=== PATIENT | female | born 1955 | race Caucasian/White ===

== ENCOUNTER 2024-11-08 10:10 | Outpatient (CLI) | payer MEDICARE, SELFPAY ==
--- NOTE | ~2024-11-08 | XR_ITS ---
XR chest 2V 11/08/2024 10:35 Indication: Cough Procedure: 2 view chest Comparison: 04/17/2009 Findings: There is left lower lobe airspace disease, compatible with pneumonia. Heart size normal. No edema, significant effusion or pneumothorax. No acute osseous abnormality. Impression: 1: Left lower lobe pneumonia. Reviewed, dictated and finalized at location B. INUM SMITH Impression: 1: Left lower lobe pneumonia.
--- OUTSIDE RECORDS SUMMARY | 2024-11-08 10:33 | XMS_ITS ---
Author Organization [facility] Address [address] [place] [address] Phone Care Team Providers Care Laborer Road Name Role Phone Alex Trujillo MD Primary Care Provider + [phone] Catrachito Dwyer MD Unavailable [phone] Active Problems Problem Noted Date Diagnosed Date Abnormal finding on mammography 09/20/2023 Anemia 09/20/2023 Blood in urine 09/20/2023 Constipation 09/20/2023 Disorder of sacrum 09/20/2023 Enthesopathy of hip region 09/20/2023 Lower abdominal pain 09/20/2023 Malaise and fatigue 09/20/2023 Osteoarthritis of knee 09/20/2023 Pain in limb 09/20/2023 Sinusitis 09/20/2023 Type 2 diabetes mellitus without complication (C MS/HCC) 09/20/2023 Post-operative pain 05/31/2023 Closed fracture of sacrum, u nspecified portion of sacrum, initial encounter 03/15/2023 Surgery, elective 03/15/2023 Central cord syndrome at C5 level of cervical sp inal cord 03/14/2023 Nausea 02/11/2023 Acute upper respiratory infection 08/09/2022 COVID-19 07/28/2022 Fatigue 07/16/2022 Dyspnea 05/25/2022 Hyponatremia 04/29/2022 Muscle weakness 04/29/2022 Acute urinary tract infection 04/21/2022 Dizziness 04/20/2022 Headache 04/20/2022 Pain of right hip joint 03/15/2022 Gastroesophageal reflux disease without esophagi tis 08/13/2021 Hyperlipidemia 03/06/2019 Essential hypertension 03/06/2019 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 Past Treatment and Therapy Plans No past plan information found. Lifetime Dose Tracking * Chemical Lifetime Dose Automatic Entry Manual Entr y Fluoro Time 0.452 minutes 0.452 minutes 0 minutes Air kerma at the reference point (Ka,r) 3.9 mGy 3 .9 mGy 0 mGy DLP 4,170.1 mGycm 4,170.1 mGycm 0 mGycm
--- OUTSIDE RECORDS SUMMARY | 2024-11-08 10:33 | XMS_ITS | Referral Summary ---
Author Organization [facility] Address [address] [place] [address] Phone Care Team Providers Care Cissp Name Role Phone Alex Trujillo MD Primary Care Provider + [phone] Catrachito Dwyer MD Unavailable Encounters Date Type Department Care Team Description 10/11/2024 Telephone [facility] Orth[facility] Medicine [address] [place] [address] [place] [phone] Dru Mcneal MD Appointment 08/24/2024 Telephone [facility] Orthopaedic Surgery [address] [facility] Advanced [facility] [address] [place] [address] [place] [address] Dru Mcneal MD from Last 3 Months Allergies Active Allergy Reactions Criticality Noted Date Comments Adhesive Tape-Silicones Codeine Nausea only Low Morphine Nausea only Low 09/20/2023 Opioids - Morphine Analogues Nausea only Low 2014 Medications carvedilol (COREG) 3.125 mg tablet 06/06/2017Coreg, po solid 6.25 mg TabletPOBIDCurrent Medication 017 Active hydroCHLOROthi azide (HYDRODIURIL) 25 mg tablet 06/06/2017Hydrochloroth iazide, po solid 25 mg TabletPOas directedCurrent Medication 017 Active lisinopril (PRINIVIL,ZEST RIL) 40 mg tablet 06/06/2017Lisinopril, po solid 40 mg TabletPOBIDCurrent Medication 017 Active metFORMIN (GLUCOPHAGE) 1,000 mg tablet 06/06/2017Metformin hcl, po solid 1000 mg TabletPOBIDCurrent Medication Active montelukast (SINGULAIR) 10 mg tablet 06/06/2017Montelukast sodium, po solid 10 mg TabletPOdailyCurrent Medication Active multivitamin capsule 06/06/2017One daily multivitamin, po solid TabletPOdailyCurrent Medication Active pravastatin (PRAVACHOL) 40 mg tablet 06/06/2017Pravastatin sodium, po solid 10 mg TabletPOQHSCurrent Medication Active ascorbic acid (ascorbic acid) 500 mg tablet,chewabl e daily. Active potassium 99 mg tablet Take by mouth. Activ e amLODIPine (NORVASC) 10 mg tablet Take 1 tablet (10 mg total) by mouth daily 023 Active acetaminophen 500 mg capsule Take 2 capsules (1,000 mg total) by mouth every 6 (six) hours 30 tablet [address] (PROTONIX) 40 mg EC tabletIndicati ons:Stress Ulcer Prophylaxis Take 1 tablet (40 mg total) by mouth daily 30 tablet 023 Active aspirin 325 mg tablet Take 1 tablet (325 mg total) by mouth daily May restart 325mg ASA when Lovenox is discontinued (04/24/23). 023 Active cefdinir (OMNICEF) 300 mg capsule Active magnesium oxide (MAG-OX) 400 mg (241.3 mg elemental magnesium) tablet Take 1 tablet (400 mg total) by mouth 2 (two) times a day 023 Active baclofen (LIORESAL) 10 mg tabletIndicati ons:Post-opera tive pain Take 1 tablet (10 mg total) by mouth 2 (two) times a day 60 tablet 025 Active baclofen (LIORESAL) 10 mg tabletIndicati ons:Post-opera tive pain Take 1 tablet (10 mg total) by mouth 3 (three) times a day as needed for muscle spasms 90 tablet 1 023 2024 Disconti nued(Reo rder) Active Problems Problem Noted Date Diagnosed Date [...] 02/24/2015:Stage IA(cT1a, cN0, cM0, G2, ER: Positive, MD: Positive, HER2: Negative) - Signed by Catrachito Dwyer MD on 03/06/2018 Calculus of kidney 01/12/2016 Angina pectoris 08/22/2013 Former smoker 01/05/2012 Sleep apnea syndrome 02/01/2011 Overview (12/30/2017): Description: Sleep Apnea Atrial fibrillation (CMS/HCC) 02/01/2011 Overview (12/30/2017): Description: Atrial Fibrillation Immunizations Immunization Administration Dates Next Due Flucelvax Influenza Quad 09/07/2018 Influenza, Unspecified 07/06/2017,07/06/2016, Pneumococcal Conjugate, Unspecified 07/06/2015 Social History Tobacco Use Types Packs/Day Years Used Date Smoking Tobacco: Former Cigarettes 3 8 1 969 - 1976 Smokeless Tobacco: Never Tobacco Cessation:Counseling Given: Not Answered Alcohol Use Standard Drinks/Week Comments Not Currently 0 (1 standard drink = 0.6 oz pur e alcohol) AUDIT-C Answer Date Recorded Frequency of Alcohol Consumption Not on file 09/20/2023 Q2: How many drinks containi ng alcohol do you have on a typical day when you are drinking? Patient does not drink Frequency of Binge Drinking Not on file 10/2023 Personal Safety Answer Date Recorded Have you ever been in or are you currently in a harmful physical or emotional relationship or is someone making you feel afraid or unsafe? 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 Gender Identity Not on file Sexual Orientation Not on file Last Filed Vital Signs Vital Sign Reading Time Taken Comments Blood Pressure 130/59 03/23/2023 1:40 PM CDT Pulse 71 03/23/2023 1:40 PM CDT Temperature 36.7 C (98.1 F) 03/23/2023 12:10 PM CDT Respiratory Rate 16 03/23/2023 12:10 PM CDT Oxygen Saturation 98% 03/23/2023 1:40 PM CDT Inhaled Oxygen Concentration - - Weight 104.8 kg (231 lb) 04/24/2024 4:17 PM CDT Height 168.9 cm (5' 6.5 ) 04/24/2024 4:17 PM CDT Body Mass Index 36.73 04/24/2024 4:17 PM CDT Plan of Treatment Not on file Medical Devices Implanted Type Area Boiler Operators Supervisor Device Identifier Shelf Expiration Date Model / Serial / Lot Medtronic Inc Infuse 20ga 2x1in Vial Absorbable Syringe Needle Medium Graft 5.6 [id number] - [id number] Implanted:Qty: 1 on 03/15/2023 by Dru Mcneal MD at [facility] N/A: Spine Cervical Medtronic Inc 05/20/2023 [id number] / / Allosource Crushed Fresh Frozen Cancellous 1-4mm Graft 15ml Bone [id number] - [id number] Implanted:Qty: 1 on 03/15/2023 by Dru Mcneal MD at [facility] N/A: Spine Cervical Allosource 11/19/2027 [id number] / / [id number] Depuy Synthes Spine Screw Spinal Posterior Cervical Polyaxial Solid Symphony 3.5x14mm [id number] - [id number] Implanted:Qty: 8 on 03/15/2023 by Dru Mcneal MD at [facility] N/A: Spine Cervical Depuy Synthes Spine [id number] / / Depuy Synthes Spine Rm Spinal Pre Lordotic Pre Cut Symphony 4.0x55mm Titanium [id number] - [id number] Implanted:Qty: 2 on 03/15/2023 by Dru Mcneal MD at [facility] N/A: Spine Cervical Depuy Synthes Spine [id number] / / Depuy Synthes Spine Substitute Bone Graft Fibergraft Large Bioactive Glass Putty [id number] - [id number] Implanted:Qty: 1 on 03/15/2023 by Dru Mcneal MD at [facility] N/A: Spine Cervical Depuy Synthes Spine 08/09/2025 [id number] / / [id number] Depuy Synthes Spine Screw Spinal Set Posterior Cervical Solid Symphony Titanium [id number] - [id number] Implanted:Qty: 8 on 03/15/2023 by Dru Mcneal MD at [facility] N/A: Spine Cervical Depuy Synthes Spine [id number] / / Procedures Procedure Name Priority Date/Time Associated Diagnosis Comments EGFR Routine Gen Lab 04/12/2023 5:48 AM CDT HEMOGLOBIN A1C STAT 03/15/2023 12:22 AM CDT LIPID PANEL STAT 03/15/2023 12:22 AM CDT from Last 3 Months or Most Recently Relevant to Health Maintenance Results * (ABNORMAL) eGFR (04/12/2023 5:48 AM CDT) [facility] eGFR 83(L) 90 - 130 mL/min/1. 73 m2 [facility] Comment: Interpretive Data Reference Interval Normal >/= 90 mL/min/1.73m2 Mildly decreased* 60 - 89 mL/min/1.73m2 Mildly to moderately decreased 45 - 59 mL/min/1.73m2 Moderately to severely decreased 30 - 44 mL/min/1.73m2 Severely decreased 15 - 29 mL/min/1.73m2 Kidney Failure < 15 mL/min/1.73m2 *Relative to young adult level Estimated glomerular filtration rate is determined by the 2020 CKD-EPI equation recommended by the National Kidney Foundation (A Unifying Approach to GFR Estimation: Recommendations of the NKF-ASK Task Force on Reassessing the Inclusion of Race in Diagnosing Kidney Disease, JASN 202). The CKD-EPI equation should not be used for patients with unstable renal function and has not been validated in children and those over 70. Current interpretive data was last reviewed 2021. Blood 04/12/2023 5:48 AM CDT 04/12/2023 6:51 AM CDT us Notinfile Unknown LAB BLOOD ORDERABLES Final Res ult Performing Organization Address City/State/[facility] Co de Phone Number [facility] Department [place] [address] * (ABNORMAL) Hemoglobin A1c (03/15/2023 12:22 AM CDT) Hgb A1C 6.2(H) 4.0 - 5.6 % [facility] Estimated Average Glucose 131 mg/dL [facility] Comment: The ADA recommends reporting an estimated Average Glucose (eAG) with all Hemoglobin A1c results using the equation derived from a study of 507 normal and diabetic adults. Minority populations were underrepresented and children were not included. (Diabetes Care 2020; 43(S1): S66-S76). The eAG is not equivalent to a fasting glucose. Blood 03/15/2023 12:2 2 AM CDT 03/15/2023 12:39 AM CDT us Dru Mcneal MD LAB BLOOD ORDERABLES Final Result [facility] Department [place] [address] * Lipid panel (03/15/2023 12:22 AM CDT) Cholesterol 191 30 - 199 mg/dL [facility] Comment: Interpretive Data Ages < or = 19 years Acceptable: <170 mg/dL Borderline high: 170-199 mg/dL High: >or= 200 mg/dL Ages > or = 20 years Desirable: <200 mg/dL Borderline high: 200-239 mg/dL High: >or= 240 mg/dL Literature References: 1. Expert Panel on Integrated Guidelines for Cardiovascular Health and Risk Reduction in Children and Adolescents. Pediatrics 2011;128:S213 2. NCEP Expert Panel. Circulation 2004;110:227 Current Interpretive Data was last revised on 2018. Triglycerides 87 <=149 mg/dL [facility] Comment: Interpretive Data Ages < or = 9 years Acceptable: <75 mg/dL Borderline high: 75-99 mg/dL High: >or= 100 mg/dL Ages 10 to 20 years Acceptable: <90 mg/dL Borderline high: 90-129 mg/dL High: >or= 130 mg/dL Ages > or = 20 years Desirable: <150 mg/dL Borderline high: 150-199 mg/dL High: 200-499 mg/dL Very high: >or= 499 mg/dL Literature References: 1. Expert Panel on Integrated Guidelines for Cardiovascular Health and Risk Reduction in Children and Adolescents. Pediatrics 2011;128:S213 2. NCEP Expert Panel. Circulation 2004;110:227 Current Interpretive Data was last revised on 2018. HDL 68 >=40 mg/dL [facility] Comment: Interpretive Data Ages < or = 19 years Acceptable: >45 mg/dL Borderline low: 40-45 mg/dL Low: <40 mg/dL Ages > or = 20 years Desirable: >or= 60 mg/dL Low: <40 mg/dL Literature References: 1. Expert Panel on Integrated Guidelines for Cardiovascular Health and Risk Reduction in Children and Adolescents. Pediatrics 2011;128:S213 2. NCEP Expert Panel. Circulation 2004;110:227 Current Interpretive Data was last revised on 2018. LDL, calculated 106 <=129 mg/dL [facility] Comment: Interpretive Data Ages < or = 19 years Acceptable: <110 mg/dL Borderline high: 110-129 mg/dL High: >or= 130 mg/dL Ages > or = 20 years Optimal: <100 mg/dL Near optimal: 100-129 mg/dL Borderline high: 130-159 mg/dL High: >160 mg/dL Literature References: 1. Expert Panel on Integrated Guidelines for Cardiovascular Health and Risk Reduction in Children and Adolescents. Pediatrics 2011;128:S213 2. NCEP Expert Panel. Circulation 2004;110:227 Current Interpretive Data was last revised on 2018. Non-HDL Cholesterol 123 mg/dL [facility] Comment: Interpretive Data Ages < or = 19 years Acceptable: <120 mg/dL Borderline high: 120-144 mg/dL High: >145 mg/dL Ages > or = 20 years When triglycerides are >200 mg/dL, Non-HDL cholesterol is a secondary target of therapy with treatment goals that are 30 mg/dL greater than the LDL cholesterol target. Literature References: 1. Expert Panel on Integrated Guidelines for Cardiovascular Health and Risk Reduction in Children and Adolescents. Pediatrics 2011;128:S213 2. NCEP Expert Panel. Circulation 2004;110:227 Current Interpretive Data was last revised on 2018. Chol/HDL ratio 3 [facility] Blood 03/15/2023 12:2 2 AM CDT 03/15/2023 12:36 AM CDT Dru Mcneal MD LAB BLOOD ORDERABLES Final Result Performing Organization Address City/State/[facility] Co de Phone Number [facility] Department [place] [address] from Last 3 Months or Most Recently Relevant to Health Maintenance Insurance MEDICARE SOLUTIONS MEDICARE SOLUTIONS Advance Directives For more information, please contact: [phone] * Full Code (Latest Code Status on File) Date Activated Date Inactivated Comments 03/15/2023 11:25 PM 03/23/2023 8:02 PM Care Teams Cissp Relationship Specialty Start Date End Date Alex Trujillo MD PCP - General Internal Medicine 03/06/18 Catrachito Dwyer MD Medical Oncologist/Emergency Care Tech Hematology and Oncology 08/28/18
--- OUTSIDE RECORDS SUMMARY | 2024-11-08 10:34 | XMS_ITS | Continuity of Care Document ---
Author Organization [facility] Address [address] [place] [address] Phone Care Team Providers Care Milking Machine Technician Name Role Phone Axel Andersonhil Unavailable Unavailable Procedures Procedure Date Office/outpatient Visit, [facility] Advance Directives Directive Yes / No Effective Date File Name No Information Encounters Encounter Description Practice Location Reason(s) For Visit Diagnoses Date Provider Providers Copied on Encounter Office/outpat ient Visit, [facility], [address], [place], [place], [id number], [place] tel:[phone] [facility] [place] No Information Nov- 0-201 0 Justin Regino. [address] [facility] [address], [place], [address], [place]. tel:[phone] Family History Family Member Type Diagnosis Age At Onset No Information Payers Payer name Insurance type Covered democrat ID Authoriza tion(s) BS [place] Out Of [place] [id number] Social History Type Description Quantity Date Captured Comments Sex Female Smoking Status No Information Chief Complaint And Reason For Visit No Information Reason For Referral Reason For Referral No Information History Of Present Illness Encounter Date Complaint History Of Prese nt Illness No Information Functional Status Date Functional Assessmen t No Information Instructions Date Instruction Additional Infor mation No Information Assessments Type Assessment Date No Information Patient Care Teams Name Effective Dates (start - stop) Status Members No Information
--- OUTSIDE RECORDS SUMMARY | 2024-11-08 10:34 | XMS_ITS | Data Portability ---
Author Organization [facility] Sherice Preciado Address [address] [place] [address] Care Team Providers Care Smash Piecer Name Role Phone NAYANA TRUJILLO Primary Care Provider Unavailabl e Assessment Encounter Date Assessment Date Assessment LastModified by Organization Details LastModified Time 11/29/2023 11/29/2023 Ofloxacin eardrops mammogram blood work diagnosis and assessment and plan have been discussed advised to stay up on the date on screenings and immunizations follow-up 4 months [email or web address] Not available 12/03/2023 22:41:31 03/27/2024 03/27/2024 most recent bloo d work reviewed unclear we ordered an A1c I do not see that she wants to hold off sugars have been doing fine diagnosis have been discussed we will get her old records follow up with me in 4 months [email or web address] Not available 03/27/2024 22:01:32 06/27/2024 06/27/2024 blood pressure today 140/70 we will monitor. Compression socks for her edema. Blood work has been ordered. We will try to obtain from her old records all of her immunizations and screenings and see where the gaps are still [email or web address] Not available 06/30/2024 14:00:12 11/02/2024 11/02/2024 swab is negative for flu and COVID. I am worried that she has got now bacterial superinfection possibly leading towards pneumonia for chronic medical problems blood work will be ordered she will continue on her current medications for her diabetes chronic rhinitis hyperlipidemia and GERD. We will give a little bit of ondansetron for current nausea but I think it is more for acute illness complex. Chest x-ray Augmentin 875 b.i.d. for 1 week regular visit in 3 months but if she is not better in a few days she will let me know [email or web address] Not available 11/03/2024 13:46:40 Plan of Treatment Reminders Order Date Submit Date Provider Last Modified By Organization Details Last Modified Time Details Appointments ANY 15 2024 10:15A M Nayana Trujillo MD Not available Not available Not available Lab HbA1c (hemoglob in A1c), blood 2024 025 [facility], [address], [place], [address], 11/03/2024 08:25:03 CBC w/ auto diff 2024 025 [facility], [address], [place], [address], 11/03/2024 08:25:05 CMP, serum or plasma 2024 025 [facility], [address], [place], [address], 11/03/2024 08:25:01 lipid panel, serum 2024 025 [facility], [address], [place], [address], 11/03/2024 08:24:59 influenza virus A + B + SARS-CoV- 2 (COVID19) Ag panel, rapid IA, upper respirato ry specimen 2024 025 [email or web address] In-Office Order, Internal Use Only DO Not Attach Compendium DO Not Attach Compendium, Do Not Delete/merge, [id number] 11/02/2024 16:27:38 HbA1c (hemoglob in A1c), blood 2023 024 [facility], [address], [place], [address], 06/28/2024 06:18:34 CBC w/ auto diff 2023 024 [facility], [address], [place], [address], 06/28/2024 06:18:35 lipid panel, serum 2023 024 [facility], [address], [place], [address], 06/28/2024 06:18:31 CMP, serum or plasma 2023 024 [facility], [address], [place], [address], 06/28/2024 06:18:32 CMP, serum or plasma 2023 024 [facility], [address], [place], [address], 11/30/2023 10:14:12 CBC w/ auto diff 2023 024 [facility], [address], [place], [address], 11/30/2023 10:14:12 lipid panel, serum 2023 024 [facility], [address], [place], [address], 11/30/2023 10:14:11 Referral None recorded. Procedures None recorded. Surgeries None recorded. Imaging XR, chest, 2 view [id number] [facility] [address] [place], [address], 11/02/2024 16:27:38 MAMMO, screening , digital, bilateral [email or web address] [facility] [address] [place], [address], 12/14/2023 12:49:09 Medication Orders prednison e 20 mg tablet [address] [facility], [address] [place] [address], [address], 11/02/2024 16:27:38 amoxicill in 875 mg-potass ium clavulana te 125 mg tablet [address] [facility], [address] [place] [address], [address], 11/02/2024 16:27:38 ondansetr on HCl 4 mg tablet [address] [facility], [address] [place] [address], [address], 11/02/2024 16:27:38 ofloxacin 0.3 % ear drops 2023 025 [facility], [address] [place] [address], [address], 11/02/2024 14:26:26 Patient TargetsNo targets recorded. Patient Instructions Encounter Date Encounter Id Patient Instructions Last Modified By Organization Details Last Modified Time 03/27/2024 [id number] A healthy lifestyle: care instructions [email or web address] Not available 03/27/2024 22:01:47 06/27/2024 [id number] A healthy lifestyle: care instructions Not available 06/27/2024 15:20:02 11/02/2024 [id number] A healthy lifestyle: care instructions Not available 11/02/2024 16:27:38 Reason for Referral None Reported. Results Created Date Observation Date Name Description Value Unit Range Abnormal Flag Note LastModifiedBy Organization Detail LastModifiedTime 11/29/1911/30/2023 LIPID PANEL cholesterol, total 181 mg/dL 100-19 9 Not Available [facility] ([facility]) [address] [facility], [place], [address], 11/30/2023 10:14:11 11/29/19 24 11/30/2023 LIPID PANEL triglyceride s 140 mg/dL 0-149 Not Available [facility] ([facility]) [address] [place], [address], 11/30/2023 10:14:11 11/29/19 24 11/30/2023 LIPID PANEL HDL cholesterol 70 mg/dL >39 Not Available [facility] ([facility]) [address] [place], [address], 11/30/2023 10:14:11 11/29/19 24 11/30/2023 LIPID PANEL VLDL cholesterol see 24 mg/dL 5-40 Not Available [facility] ([facility]) [address] [place], [address], 11/30/2023 10:14:11 11/29/19 24 11/30/2023 LIPID PANEL LDL chol calc ([facility]) 87 mg/dL 0-99 Not Available [facility] ([facility]) [address] [place], [address], 11/30/2023 10:14:11 11/29/19 24 11/30/2023 COMP. METAB OLIC PANEL (14) glucose 95 mg/dL 70-99 Not Available [facility] ([facility]) [address] [place], [address], 11/30/2023 10:14:12 11/29/19 24 11/30/2023 COMP. METAB OLIC PANEL (14) BUN 20 mg/dL 8-27 Not Available [facility] ([facility]) [address] [place], [address], 11/30/2023 10:14:12 11/29/19 24 11/30/2023 COMP. METAB OLIC PANEL (14) creatinine 0.86 mg/dL 0.57-1 .00 Not Available [facility] ([facility]) [address] [place], [address], 11/30/2023 10:14:12 11/29/19 24 11/30/2023 COMP. METAB OLIC PANEL (14) eGFR 73 mL/mi n/1.7 3 >59 Not Available [facility] ([facility]) [address] [facility], [place], [address], 11/30/2023 10:14:12 11/29/19 24 11/30/2023 COMP. METAB OLIC PANEL (14) BUN/creatini ne ratio 23 12-28 Not Available [facility] ([facility]) [address] [facility], [place], [address], 11/30/2023 10:14:12 11/29/19 24 11/30/2023 COMP. METAB OLIC PANEL (14) sodium 136 mmol/ L 134-14 4 Not Available [facility] ([facility]) [address] [facility], [place], [address], 11/30/2023 10:14:12 11/29/19 24 11/30/2023 COMP. METAB OLIC PANEL (14) potassium 4.4 mmol/ L 3.5-5. 2 Not Available [facility] ([facility]) [address] [place], [address], 11/30/2023 10:14:12 11/29/19 24 11/30/2023 COMP. METAB OLIC PANEL (14) chloride 94 mmol/ L 96-106 below low normal Not Available [facility] ([facility]) [address] [place], [address], 11/30/2023 10:14:12 11/29/19 24 11/30/2023 COMP. METAB OLIC PANEL (14) carbon dioxide, total 28 mmol/ L 20-29 Not Available [facility] ([facility]) [address] [place], [address], 11/30/2023 10:14:12 11/29/19 24 11/30/2023 COMP. METAB OLIC PANEL (14) calcium 9.7 mg/dL 8.7-10 .3 Not Available [facility] ([facility]) [address] [facility], [place], [address], 11/30/2023 10:14:12 11/29/19 24 11/30/2023 COMP. METAB OLIC PANEL (14) protein, total 6.9 g/dL 6.0-8. 5 Not Available [facility] ([facility]) [address] [facility], [place], [address], 11/30/2023 10:14:12 11/29/19 24 11/30/2023 COMP. METAB OLIC PANEL (14) albumin 4.5 g/dL 3.9-4. 9 Not Available [facility] ([facility]) [address] [facility], [place], [address], 11/30/2023 10:14:12 11/29/19 24 11/30/2023 COMP. METAB OLIC PANEL (14) globulin, total 2.4 g/dL 1.5-4. 5 Not Available [facility] ([facility]) [address] [place], [address], 11/30/2023 10:14:12 11/29/19 24 11/30/2023 COMP. METAB OLIC PANEL (14) A/G ratio 1.9 1.2-2. 2 Not Available [facility] ([facility]) [address] [facility], [place], [address], 11/30/2023 10:14:12 11/29/19 24 11/30/2023 COMP. METAB OLIC PANEL (14) bilirubin, total <0.2 mg/dL 0.0-1. 2 Not Available [facility] ([facility]) [address] [facility], [place], [address], 11/30/2023 10:14:12 11/29/19 24 11/30/2023 COMP. METAB OLIC PANEL (14) alkaline phosphatase 65 IU/L 44-121 Not Available [facility] ([facility]) [address] [facility], [place], [address], 11/30/2023 10:14:12 11/29/19 24 11/30/2023 COMP. METAB OLIC PANEL (14) AST (SGOT) 13 IU/L 0-40 Not Available [facility] ([facility]) [address] [facility], [place], [address], 11/30/2023 10:14:12 11/29/19 24 11/30/2023 COMP. METAB OLIC PANEL (14) ALT (SGPT) 7 IU/L 0-32 Not Available [facility] ([facility]) [address] [facility], [place], [address], 11/30/2023 10:14:12 11/29/19 24 11/30/2023 CBC WITH DIFFE RENTI AL/PL ATELE T WBC 7.2 x10e3 /uL 3.4-10 .8 Not Available [facility] ([facility]) [address] [place], [address], 11/30/2023 10:14:12 11/29/19 24 11/30/2023 CBC WITH DIFFE RENTI AL/PL ATELE T RBC 4.52 x10e6 /uL 3.77-5 .28 Not Available [facility] ([facility]) [address] [facility], [place], [address], 11/30/2023 10:14:12 11/29/19 24 11/30/2023 CBC WITH DIFFE RENTI AL/PL ATELE T hemoglobin 11.5 g/dL 11.1-1 5.9 Not Available [facility] ([facility]) [address] [place], [address], 11/30/2023 10:14:12 11/29/19 24 11/30/2023 CBC WITH DIFFE RENTI AL/PL ATELE T hematocrit 36.4 % 34.0-4 6.6 Not Available [facility] ([facility]) [address] [facility], [place], [address], 11/30/2023 10:14:12 11/29/19 24 11/30/2023 CBC WITH DIFFE RENTI AL/PL ATELE T MCV 81 fL 79-97 Not Available [facility] ([facility]) [address] [facility], [place], [address], 11/30/2023 10:14:12 11/29/19 24 11/30/2023 CBC WITH DIFFE RENTI AL/PL ATELE T MCH 25.4 pg 26.6-3 3.0 below low normal Not Available [facility] ([facility]) [address] [facility], [place], [address], 11/30/2023 10:14:12 11/29/19 24 11/30/2023 CBC WITH DIFFE RENTI AL/PL ATELE T MCHC 31.6 g/dL 31.5-3 5.7 Not Available [facility] ([facility]) [address] [facility], [place], [address], 11/30/2023 10:14:12 11/29/19 24 11/30/2023 CBC WITH DIFFE RENTI AL/PL ATELE T RDW 15.1 % 11.7-1 5.4 Not Available [facility] ([facility]) [address] [facility], [place], [address], 11/30/2023 10:14:12 11/29/19 24 11/30/2023 CBC WITH DIFFE RENTI AL/PL ATELE T platelets 302 x10e3 /uL 150-45 0 Not Available [facility] ([facility]) [address] [facility], [place], [address], 11/30/2023 10:14:12 11/29/19 24 11/30/2023 CBC WITH DIFFE RENTI AL/PL ATELE T neutrophils 64 % notest ab. Not Available [facility] ([facility]) [address] [facility], [place], [address], 11/30/2023 10:14:12 11/29/19 24 11/30/2023 CBC WITH DIFFE RENTI AL/PL ATELE T lymphs 24 % notest ab. Not Available [facility] ([facility]) [address] [facility], [place], [address], 11/30/2023 10:14:12 11/29/19 24 11/30/2023 CBC WITH DIFFE RENTI AL/PL ATELE T monocytes 9 % notest ab. Not Available [facility] ([facility]) [address] [facility], [place], [address], 11/30/2023 10:14:12 11/29/19 24 11/30/2023 CBC WITH DIFFE RENTI AL/PL ATELE T eos 2 % notest ab. Not Available [facility] ([facility]) [address] [facility], [place], [address], 11/30/2023 10:14:12 11/29/19 24 11/30/2023 CBC WITH DIFFE RENTI AL/PL ATELE T basos 1 % notest ab. Not Available [facility] ([facility]) [address] [facility], [place], [address], 11/30/2023 10:14:12 11/29/19 24 11/30/2023 CBC WITH DIFFE RENTI AL/PL ATELE T neutrophils (absolute) 4.6 x10e3 /uL 1.4-7. 0 Not Available [facility] ([facility]) [address] [facility], [place], [address], 11/30/2023 10:14:12 11/29/19 24 11/30/2023 CBC WITH DIFFE RENTI AL/PL ATELE T lymphs (absolute) 1.7 x10e3 /uL 0.7-3. 1 Not Available [facility] ([facility]) [address] [facility], [place], [address], 11/30/2023 10:14:12 11/29/19 24 11/30/2023 CBC WITH DIFFE RENTI AL/PL ATELE T monocytes(ab solute) 0.7 x10e3 /uL 0.1-0. 9 Not Available [facility] ([facility]) [address] [facility], [place], [address], 11/30/2023 10:14:12 11/29/19 24 11/30/2023 CBC WITH DIFFE RENTI AL/PL ATELE T eos (absolute) 0.2 x10e3 /uL 0.0-0. 4 Not Available [facility] ([facility]) [address] [facility], [place], [address], 11/30/2023 10:14:12 11/29/19 24 11/30/2023 CBC WITH DIFFE RENTI AL/PL ATELE T baso (absolute) 0.1 x10e3 /uL 0.0-0. 2 Not Available [facility] ([facility]) [address] [facility], [place], [address], 11/30/2023 10:14:12 11/29/19 24 11/30/2023 CBC WITH DIFFE RENTI AL/PL ATELE T immature granulocytes 0 % notest ab. Not Available [facility] ([facility]) [address] [facility], [place], [address], 11/30/2023 10:14:12 11/29/19 24 11/30/2023 CBC WITH DIFFE RENTI AL/PL ATELE T immature grans (abs) 0.0 x10e3 /uL 0.0-0. 1 Not Available [facility] ([facility]) [address] [facility], [place], [address], 11/30/2023 10:14:12 06/27/20 24 06/28/2024 LIPID PANEL cholesterol, total 184 mg/dL 100-19 9 Not Available [facility] ([facility]) [address] [facility], [place], [address], 06/28/2024 06:18:31 06/27/20 24 06/28/2024 LIPID PANEL triglyceride s 117 mg/dL 0-149 Not Available [facility] ([facility]) [address] [place], [address], 06/28/2024 06:18:31 06/27/20 24 06/28/2024 LIPID PANEL HDL cholesterol 77 mg/dL >39 Not Available [facility] ([facility]) [address] [facility], [place], [address], 06/28/2024 06:18:31 06/27/20 24 06/28/2024 LIPID PANEL VLDL cholesterol see 20 mg/dL 5-40 Not Available [facility] ([facility]) [address] [place], [address], 06/28/2024 06:18:31 06/27/20 24 06/28/2024 LIPID PANEL LDL chol calc ([facility]) 87 mg/dL 0-99 Not Available [facility] ([facility]) [address] [facility], [place], [address], 06/28/2024 06:18:31 06/27/20 24 06/28/2024 COMP. METAB OLIC PANEL (14) glucose 114 mg/dL 70-99 above high normal Not Available [facility] ([facility]) [address] [place], [address], 06/28/2024 06:18:32 06/27/20 24 06/28/2024 COMP. METAB OLIC PANEL (14) BUN 19 mg/dL 8-27 Not Available [facility] ([facility]) [address] [place], [address], 06/28/2024 06:18:32 06/27/20 24 06/28/2024 COMP. METAB OLIC PANEL (14) creatinine 0.95 mg/dL 0.57-1 .00 Not Available [facility] ([facility]) [address] [place], [address], 06/28/2024 06:18:32 06/27/20 24 06/28/2024 COMP. METAB OLIC PANEL (14) eGFR 65 mL/mi n/1.7 3 >59 Not Available [facility] ([facility]) [address] [place], [address], 06/28/2024 06:18:32 06/27/20 24 06/28/2024 COMP. METAB OLIC PANEL (14) BUN/creatini ne ratio 20 12-28 Not Available [facility] ([facility]) [address] [place], [address], 06/28/2024 06:18:32 06/27/20 24 06/28/2024 COMP. METAB OLIC PANEL (14) sodium 138 mmol/ L 134-14 4 Not Available [facility] ([facility]) [address] [place], [address], 06/28/2024 06:18:32 06/27/20 24 06/28/2024 COMP. METAB OLIC PANEL (14) potassium 4.3 mmol/ L 3.5-5. 2 Not Available [facility] ([facility]) [address] [place], [address], 06/28/2024 06:18:32 06/27/20 24 06/28/2024 COMP. METAB OLIC PANEL (14) chloride 96 mmol/ L 96-106 Not Available [facility] ([facility]) [address] [place], [address], 06/28/2024 06:18:32 06/27/20 24 06/28/2024 COMP. METAB OLIC PANEL (14) carbon dioxide, total 28 mmol/ L 20-29 Not Available [facility] ([facility]) [address] [place], [address], 06/28/2024 06:18:32 06/27/20 24 06/28/2024 COMP. METAB OLIC PANEL (14) calcium 9.9 mg/dL 8.7-10 .3 Not Available [facility] ([facility]) [address], [place], [address], 06/28/2024 06:18:32 06/27/20 24 06/28/2024 COMP. METAB OLIC PANEL (14) protein, total 7.1 g/dL 6.0-8. 5 Not Available [facility] ([facility]) [address] [place], [address], 06/28/2024 06:18:32 06/27/20 24 06/28/2024 COMP. METAB OLIC PANEL (14) albumin 4.7 g/dL 3.9-4. 9 Not Available [facility] ([facility]) [address] [place], [address], 06/28/2024 06:18:32 06/27/20 24 06/28/2024 COMP. METAB OLIC PANEL (14) globulin, total 2.4 g/dL 1.5-4. 5 Not Available [facility] ([facility]) [address] [place], [address], 06/28/2024 06:18:32 06/27/20 24 06/28/2024 COMP. METAB OLIC PANEL (14) bilirubin, total 0.2 mg/dL 0.0-1. 2 Not Available [facility] ([facility]) [address] [place], [address], 06/28/2024 06:18:32 06/27/20 24 06/28/2024 COMP. METAB OLIC PANEL (14) alkaline phosphatase 67 IU/L 44-121 Not Available [facility] ([facility]) [address] [place], [address], 06/28/2024 06:18:32 06/27/20 24 06/28/2024 COMP. METAB OLIC PANEL (14) AST (SGOT) 15 IU/L 0-40 Not Available [facility] ([facility]) [address] [facility], [place], [address], 06/28/2024 06:18:32 06/27/20 24 06/28/2024 COMP. METAB OLIC PANEL (14) ALT (SGPT) 9 IU/L 0-32 Not Available [facility] ([facility]) [address] [facility], [place], [address], 06/28/2024 06:18:32 06/27/20 24 06/27/2024 HEMOG LOBIN A1C hemoglobin A1C 6.2 % 4.8-5. 6 above high normal Predi abete s: 5.7 - 6.4 Diabe nereida: >6.4 Glyce dwayne contr ol for adult s with diabe nereida: <7.0 Not Available [facility] ([facility]) [address] [facility], [place], [address], 06/28/2024 06:18:34 06/27/20 24 06/27/2024 CBC WITH DIFFE RENTI AL/PL ATELE T WBC 8.0 x10e3 /uL 3.4-10 .8 Not Available [facility] ([facility]) [address] [facility], [place], [address], 06/28/2024 06:18:35 06/27/20 24 06/27/2024 CBC WITH DIFFE RENTI AL/PL ATELE T RBC 4.58 x10e6 /uL 3.77-5 .28 Not Available [facility] ([facility]) [address] [facility], [place], [address], 06/28/2024 06:18:35 06/27/20 24 06/27/2024 CBC WITH DIFFE RENTI AL/PL ATELE T hemoglobin 12.2 g/dL 11.1-1 5.9 Not Available [facility] ([facility]) [address] [facility], [place], [address], 06/28/2024 06:18:35 06/27/2006/27/2024 CBC WITH DIFFE RENTI AL/PL ATELE T hematocrit 38.7 % 34.0-4 6.6 Not Available [facility] ([facility]) [address] [facility], [place], [address], 06/28/2024 06:18:35 06/27/20 24 06/27/2024 CBC WITH DIFFE RENTI AL/PL ATELE T MCV 85 fL 79-97 Not Available [facility] ([facility]) [address] [facility], [place], [address], 06/28/2024 06:18:35 06/27/20 24 06/27/2024 CBC WITH DIFFE RENTI AL/PL ATELE T MCH 26.6 pg 26.6-3 3.0 Not Available [facility] ([facility]) [address] [facility], [place], [address], 06/28/2024 06:18:35 06/27/20 24 06/27/2024 CBC WITH DIFFE RENTI AL/PL ATELE T MCHC 31.5 g/dL 31.5-3 5.7 Not Available [facility] ([facility]) [address] [facility], [place], [address], 06/28/2024 06:18:35 06/27/20 24 06/27/2024 CBC WITH DIFFE RENTI AL/PL ATELE T RDW 13.6 % 11.7-1 5.4 Not Available [facility] ([facility]) [address] [facility], [place], [address], 06/28/2024 06:18:35 06/27/20 24 06/27/2024 CBC WITH DIFFE RENTI AL/PL ATELE T platelets 305 x10e3 /uL 150-45 0 Not Available [facility] ([facility]) [address] [facility], [place], [address], 06/28/2024 06:18:35 06/27/20 24 06/27/2024 CBC WITH DIFFE RENTI AL/PL ATELE T neutrophils 70 % notest ab. Not Available [facility] ([facility]) [address] [facility], [place], [address], 06/28/2024 06:18:35 06/27/20 24 06/27/2024 CBC WITH DIFFE RENTI AL/PL ATELE T lymphs 20 % notest ab. Not Available [facility] ([facility]) [address] [facility], [place], [address], 06/28/2024 06:18:35 06/27/20 24 06/27/2024 CBC WITH DIFFE RENTI AL/PL ATELE T monocytes 7 % notest ab. Not Available [facility] ([facility]) [address] [facility], [place], [address], 06/28/2024 06:18:35 06/27/20 24 06/27/2024 CBC WITH DIFFE RENTI AL/PL ATELE T eos 2 % notest ab. Not Available [facility] ([facility]) [address] [facility], [place], [address], 06/28/2024 06:18:35 06/27/20 24 06/27/2024 CBC WITH DIFFE RENTI AL/PL ATELE T basos 1 % notest ab. Not Available [facility] ([facility]) [address] [facility], [place], [address], 06/28/2024 06:18:35 06/27/20 24 06/27/2024 CBC WITH DIFFE RENTI AL/PL ATELE T neutrophils (absolute) 5.6 x10e3 /uL 1.4-7. 0 Not Available [facility] ([facility]) [address] [facility], [place], [address], 06/28/2024 06:18:35 06/27/20 24 06/27/2024 CBC WITH DIFFE RENTI AL/PL ATELE T lymphs (absolute) 1.6 x10e3 /uL 0.7-3. 1 Not Available [facility] ([facility]) [address] [facility], [place], [address], 06/28/2024 06:18:35 06/27/20 24 06/27/2024 CBC WITH DIFFE RENTI AL/PL ATELE T monocytes(ab solute) 0.6 x10e3 /uL 0.1-0. 9 Not Available [facility] ([facility]) [address] [facility], [place], [address], 06/28/2024 06:18:35 06/27/20 24 06/27/2024 CBC WITH DIFFE RENTI AL/PL ATELE T eos (absolute) 0.2 x10e3 /uL 0.0-0. 4 Not Available [facility] ([facility]) [address] [facility], [place], [address], 06/28/2024 06:18:35 06/27/20 24 06/27/2024 CBC WITH DIFFE RENTI AL/PL ATELE T baso (absolute) 0.1 x10e3 /uL 0.0-0. 2 Not Available [facility] ([facility]) [address], [place], [address], 06/28/2024 06:18:35 06/27/20 24 06/27/2024 CBC WITH DIFFE RENTI AL/PL ATELE T immature granulocytes 0 % notest ab. Not Available [facility] ([facility]) [address], [place], [address], 06/28/2024 06:18:35 06/27/20 24 06/27/2024 CBC WITH DIFFE RENTI AL/PL ATELE T immature grans (abs) 0.0 x10e3 /uL 0.0-0. 1 Not Available [facility] ([facility]) [address], [place], [address], 06/28/2024 06:18:35 12/08/19 24 12/08/2023 MAMMO , ponchoe santana, digit al, unila teral No observ ation record ed. [address] [place], [address], 12/20/2023 11:52:20 06/27/20 24 02/08/2023 colon oscop y proce dure (PROC ) No observ ation record ed. BARCODE Not Available 2023 12:02:27 Result Notes None recorded. Problems Name Problem SNOMED Code Status Onset Date Resolution Date Notes Provider Name and Address Organization Details Recorded Time Type 2 diabetes mellitus 57608233 Active 2023 Nayana Trujillo MD Attn: Annika palmer,[address] [facility], [place], [address], [place] [facility] 4 21:59:24 Hyperlipidemia 45294689 Active 2023 Nayana Trujillo MD Attn: Annika palmer,[address] [facility], [place], [address], [place] [facility] 4 21:59:25 Gastroesophage al reflux disease without esophagitis 257807974 Active 2023 Nayana Trujillo MD Attn: Annika palmer,[address] [facility], [place], [address], [place] [facility] 4 21:59:26 Obesity 117206004 Active 2023 Nayana Trujillo MD Attn: Annika palmer,[address] [facility], [place], [address], [place] [facility] 4 21:59:33 Chronic rhinitis 89468845 Active 2023 Nayana Trujillo MD Attn: Annika palmer,[address] [facility], [place], [address], [place] [facility] 4 22:00:57 History of malignant neoplasm of breast 948306768 Active 2023 Nayana Trujillo MD Attn: Annika palmer,[address], [place], [address], [facility] - [facility] 4 14:01:12 Cough 06099021 Active 2024 Jordy To MA null, [place] - [facility] 5 15:22:54 Nausea 041860030 Active 2024 Jordy To MA null, [place] - [facility] 5 15:22:55 Problem Notes None recorded. Procedures Surgical History Date Name Laterality Status Provider Name and Address Organization Details Recorded Time Back Surgery completed Kristi Oreilly MA [facility] 11/29/2023 11:59:00 Hernia Repair completed Kristi Oreilly MA [facility] 11/29/2023 11:59:14 Tonsillectomy completed Kristi Oreilly MA [facility] 11/29/2023 11:59:21 Total hysterectomy completed Kristi Oreilly MA [facility] 11/29/2023 11:59:31 Breast Surgery completed Kristi Oreilly MA [facility] 11/29/2023 11:59:40 Mastectomy completed Kristi Oreilly MA [facility] 11/29/2023 11:59:49 Imaging Results Imaging Date Name Status LastModified by Organiz ation Details LastModified Time 12/08/2023 MAMMO, screening, digital, unilateral completed [address], [address], 12/20/2023 11:52:20 02/08/2023 colonoscopy procedure (PROC) completed BARCODE Information not available 06/27/2024 12:02:27 Procedure Notes None recorded. Medical Equipment None Reported. Allergies Allergen ID Allergen Name Allergen Category Reaction Reaction Severity Criticality Documentation Date Start Date Code Code System Note Provider Name and Address Organization Details Recorded Time 304336 codeine medicatio n vomiting severe Not available 11/29/2023 2670 RxNorm Not Available Not Available Not Available 16760219 morphine medicatio n vomiting severe Not available 11/29/2023 7052 RxNorm Not Available Not Available Not Available Medications Name Sig Start Date Stop Date Status Note LastModified by Organization Details LastModified Time azithromyci n 250 mg tablet TAKE 2 TABLETS BY MOUTH ON DAY 1, AND THEN TAKE 1 TABLET BY MOUTH ONCE A DAY ON DAY 2 THROUGH DAY 5 11/02 completed Not Available Not Available Not Available pravastatin 40 mg tablet Take 1 tablet by mouth once daily 2024 active Not Available Not Available Not Avai lable ondansetron HCl 4 mg tablet Take 1 tablet 3 times a day by oral route as needed, for nausea. 2024 active Not Available Not Available Not Avai lable prednisone 20 mg tablet Take 2 tablets every day by oral route for 5 days. 2024 active Not Available Not Available Not Avai lable diphenoxyla te-atropine 2.5 mg-0.025 mg tablet TAKE 1 Tablet BY MOUTH DAILY 11/28 completed Not Available Not Available Not Available peg-electro lyte solution 420 gram oral solution TAKE 1/2 AT 5PM ON 03/10 THEN THEREAFTE R TAKE ADDITIONA L 1/2 AT 5AM ON 03/11 completed Not Available Not Available Not Available doxycycline monohydrate 100 mg tablet TAKE 1 TABLET BY MOUTH TWICE DAILY FOR 7 DAYS 06/27 completed Not Available Not Available Not Available acetaminoph en 500 mg tablet TAKE TWO TABLETS BY MOUTH EVERY SIX HOURS NEEDED FOR PAIN (scale 4-10) active Not Available Not Available No t Available carvedilol 3.125 mg tablet TAKE 1 TABLET BY MOUTH TWICE DAILY active Not Available Not Available No t Available ofloxacin 0.3 % ear drops INSTILL 10 DROPS INTO AFFECTED EAR(S) ONCE DAILY 11/02 completed Not Available Not Available Not Available magnesium oxide 400 mg (241.3 mg magnesium) tablet TAKE 1 TABLET BY MOUTH TWICE DAILY active Not Available Not Available No t Available aspirin 325 mg tablet,deena yed release Take 1 tablet every day by oral route. active Not Available Not Available No t Available baclofen 10 mg tablet TAKE 1 TABLET BY MOUTH TWICE DAILY 11/02 completed Not Available Not Available Not Available amlodipine 10 mg tablet TAKE 1 TABLET BY MOUTH ONCE DAILY active Not Available Not Available No t Available pantoprazol e 40 mg tablet,deena yed release TAKE 1 TABLET BY MOUTH ONCE DAILY BEFORE MEAL(S) active Not Available Not Available No t Available metformin 1,000 mg tablet TAKE 1 TABLET BY MOUTH TWICE DAILY active Not Available Not Available No t Available montelukast 10 mg tablet TAKE 1 TABLET BY MOUTH ONCE DAILY active Not Available Not Available No t Available hydrochloro thiazide 25 mg tablet TAKE 1 TABLET BY MOUTH ONCE DAILY active Not Available Not Available No t Available lisinopril 40 mg tablet TAKE 1 TABLET BY MOUTH ONCE DAILY active Not Available Not Available No t Available ondansetron 4 mg disintegrat ing tablet TAKE 1 Tablet BY MOUTH EVERY SIX HOURS NEEDED FOR NAUSEA OR FOR VOMITING DIRECTED. PLACE TABLET ON TOP OF THE TONGUE WHERE IT WILL DISSOLVE, THEN SWALLOW DIRECTED. 11/28 completed Not Available Not Available Not Available gentamicin 0.1 % topical ointment APPLY A SMALL AMOUNT TOPICALLY TO THE AFFECTED AREA OF LEFT BIG TOE 3 TIMES DAILY 11/02 completed Not Available Not Available Not Available amoxicillin 875 mg-potassiu m clavulanate 125 mg tablet Take 1 tablet twice a day by oral route for 7 days. 2024 active Not Available Not Available Not Avai lable enoxaparin 40 mg/0.4 mL subcutaneou s syringe INJECT 0.4 ML SUBCUTANE OUSLY ONCE DAILY AT BEDTIME FOR 21 DAYS 11/28 completed Not Available Not Available Not Available Paxlovid 300 mg (150 mg x 2)-100 mg tablets in a dose pack USE DIRECTED 11/28 completed Not Available Not Available Not Available Vitals Date Recorded Body height Body mass index (BMI) Body weight Body temperature Heart rate Oxygen saturation Oxygen saturation in Arterial blood by Pulse oximetry Systolic blood pressure Diastolic blood pressure Provider Name and Address Organization Details Last Updated DateTime 4 173.99 cm 34 kg/m2 760366. 47 g 98 [degF] 60 /min 99 % 99 % 144 mm[Hg] 78 mm[Hg] Kristi Oreilly [place] - [facility] 4 12:03:40 Date Recorded Body height Heart rate Oxygen saturation Oxygen saturation in Arterial blood by Pulse oximetry Systolic blood pressure Diastolic blood pressure Provider Name and Address Organization Details Last Updated DateTime 4 173.99 cm 60 /min 98 % 98 % 110 mm[Hg] 62 mm[Hg] Alice Liang MA MD [facility] 4 11:52:28 Date Recorded Body mass index (BMI) Body weight Provider Name and Address Organization Details Last Updated DateTime 03/27/2024 34.9 kg/m2 564203.02 g Jordy To MA [facility] 03/27/2024 16:31:36 Date Recorded Body height Provider Name an d Address Organization Details Last Updated DateTime 06/27/2024 173.99 cm Alice Liang MA [facility] 10:30:07 Date Recorded Body mass index (BMI) Body weight Heart rate Oxygen saturation Oxygen saturation in Arterial blood by Pulse oximetry Systolic blood pressure Diastolic blood pressure Provider Name and Address Organization Details Last Updated DateTime 34.2 kg/m2 896977. 06 g 67 /min 97 % 97 % 140 mm[Hg] 70 mm[Hg] Julia Braun MA [facility] 4 10:57:59 Date Recorded Body height Body mass index (BMI) Body weight Heart rate Oxygen saturation Oxygen saturation in Arterial blood by Pulse oximetry Systolic blood pressure Diastolic blood pressure Provider Name and Address Organization Details Last Updated DateTime 173.99 cm 33.6 kg/m2 124698. 77 g 72 /min 96 % 96 % 150 mm[Hg] 70 mm[Hg] Julia Braun MA [facility] 5 14:24:34 Social History Question Answer Notes LastModified by Organizat ion Details LastModified Time Tobacco Smoking Status Former Smoker Kristi Oreilly MA null, [facility] 11/29/2023 11:55:06 Do You Have An Advance Directive? No 11/29/23 Pt States Has POA Papers At Home, Not Signed, Cb-rma Information not available 11/29/2023 What Is Your Level Of Alcohol Consumption? None Information not available 11/29/2023 Are You Blind Or Do You Have Difficulty Seeing? No Information not available 11/29/2023 What Is Your Level Of Caffeine Consumption? Moderate Information not available 11/29/2023 In The 14 Days Before Symptom Onset, Have You Had Close Contact With A Laboratory-confir med COVID-19 While That Case Was Ill? No Information not available 03/27/2024 In The 14 Days Before Symptom Onset, Have You Had Close Contact With A Person Who Is Under Investigation For COVID-19 While That Person Was Ill? No Information not available 03/27/2024 Have You Been To An Area Known To Be High Risk For COVID-19? No Information not available 03/27/2024 Are You Currently Employed? No Information not available 11/29/2023 Are You Deaf Or Do You Have Serious Difficulty Hearing? No Information not available 11/29/2023 What Type Of Diet Are You Following? REGULAR Information not available 11/29/2023 What Was The Date Of Your Most Recent Tobacco Screening? 11/02/2024 Information not available 11/02/2024 What Is Your Relationship Status? Information not available 11/29/2023 Do You Use Your Seat Belt Or Car Seat Routinely? Yes Information not available 11/29/2023 Do You Have Smoke And Carbon Monoxide Detectors In Your Home? Yes Information not available 11/29/2023 Do You Feel Stressed (tense, Restless, Nervous, Or Anxious, Or Unable To Sleep At Night)? [id number] Information not available 03/27/2024 Do You Use Any Illicit Or Recreational Drugs? No Information not available 11/29/2023 Do You Use Sunscreen Routinely? No Information not available 11/29/2023 Has Tobacco Cessation Counseling Been Provided? Yes Information not available 11/29/2023 On What Date Was Tobacco Cessation Counseling Provided? 11/02/2024 Information not available 11/02/2024 How Many Years Have You Smoked Tobacco? 10 Information not available 11/29/2023 Do You Or Have You Ever Used Any Other Forms Of Tobacco Or Nicotine? No Information not available 11/29/2023 Sex: Female Functional Status Question Answer Note LastModified by Organization D etails LastModified Time Are you able to care for yourself? Yes Information not available 11/29/2023 What is your exercise level? Moderate Information not available 11/29/2023 Mental Status None recorded. Family History Relationship Description Onset Age of this Age Resolved Age Notes LastModified by Organization Details LastModified Time Mother Malignant tumor of breast 47 [email or web address] Not available 11/17 11:51:51 Mother Hypertensive disorder 41 [email or web address] Not available 11/17 11:54:08 Father Coronary arterioscler osis 53 [email or web address] Not available 11/17 11:52:53 Father Diabetes mellitus 53 [email or web address] Not available 11/17 11:53:08 Father Cirrhosis of liver 53 [email or web address] Not available 11/17 11:53:25 Father Hypertensive disorder 53 [email or web address] Not available 11/17 11:54:10 Sister Dementia 68 [email or web address] Not availa ble 11/29/2023 11:53:41 Medical History Condition Response Anxiety Disorder N Diabetes Y Coronary Artery Disease N High Blood Pressure N Atrial Fibrillation Y Seizures/Epilepsy N Cancer Y Stroke N Kidney or Bladder Problems N Thyroid Problems N Asthma N Depression N Blood Clots N High Cholesterol Y Hepatitis N Liver Disease N Heart Attack ([place]) N Heart Failure N Gynecological History Statement/Question Response If Post Menopausal, Age at Menopause 46 Current Control Method Hysterectom y Obstetrics History GPAL:G 0 P 0 0 0 0 Past Encounters Encounter ID Performer Location Encounter Start Date Encounter Closed Date Diagnosis/Indication Diagnosis SNOMED-CT Code Diagnosis ICD10 Code Diagnosis Note [id number] MD Andrea Cruz (Adult Med) [address] [place] [id number] 11/29/2023 11:25:31 11/29/2023 12:55:24 Pain of ear 871772562 H92.09 H92.01 Screening mammography 24 415849 Z12.31 Essential hypertension 55992508 I10 Type 2 cait betes mellitus 18435935 E11.9 Hyperlipidemia 55739755 E78.5 Chronic rhinitis 5251100 6 J31.0 Gastroesop hageal reflux disease without esophagitis 175974209 K21.9 [id number] MD Andrea Cruz (Adult Med) [address] [place] [id number] 03/27/2024 11:11:20 03/27/2024 13:09:42 Obesity 261848750 E66.8 Gastroesop hageal reflux disease without esophagitis 528356037 K21.9 Hyperlipidemia 35259096 E78.5 Type 2 cait betes mellitus 17717378 E11.9 Chronic rhinitis 7669001 6 J31.0 [id number] MD Andrea Cruz (Adult Med) [address] [place] [id number] 06/27/2024 10:22:44 06/27/2024 11:52:41 Obesity 748245013 E66.9 Hyperlipidemia 99149362 E78.5 Type 2 cait betes mellitus 55081333 E11.9 Edema of l ower extremity 837585113 R60.0 History of malignant neoplasm of breast 708607076 Z85.3 Chronic rhinitis 1929373 6 J31.0 Gastroesop hageal reflux disease without esophagitis 116119918 K21.9 [id number] Nayana Trujillo MD [facility] (Adult Med) [address] [place] [address] 11/02/2024 13:54:22 11/02/2024 15:28:11 Body mass index 30+ - obesity 982785106 Z68.33 Obesity 051552803 E66.9 Hyperlipidemia 68082792 E78.5 Type 2 cait betes mellitus 70945858 E11.9 Gastroesop hageal reflux disease without esophagitis 201182767 K21.9 Chronic rhinitis 9039881 6 J31.0 Cough 04993345 R05.9 Nausea 839195865 R11.0 Long-term drug therapy 806945490 Z79.899 Upper resp iratory infection 11314014 J06.9 Health Concerns Section Related Observation LastModified by Organization Detai ls LastModified Time None Recorded Concern Status LastModified by Organization Details LastModified Time None Recorded Advance Directives Directive N: 11/29/23 pt states has PO A papers at home, not signed, cb-rma Payers Encounter Date Sequence Insurance Name Policy Number Policy Guzmán Covered Member ID Guzmán Member ID Guarantor Name 11/29/2023 1 [facility] (MEDICARE REPLACEMENT/A DVANTAGE - HMO) [id number] Wendy Scott [id number] Wendy Scott 03/27/2024 1 [facility] (MEDICARE REPLACEMENT/A DVANTAGE - HMO) [id number] Wendy Scott [id number] Wendy Scott 06/27/2024 1 [facility] (MEDICARE REPLACEMENT/A DVANTAGE - HMO) [id number] Wendy Scott [id number] Wendy Scott 11/02/2024 1 [facility] (MEDICARE REPLACEMENT/A DVANTAGE - HMO) [id number] Wendy Scott [id number] Wendy Scott Notes Date Note Type Note Provider Name and Address Organization Details Recorded Time 11/29/2023 text/html Off-and-on pain without drainage. Hypertension no headache or dizziness diabetes no polyphasia no polydipsia hyperlipidemia tries to watch her intake of fat chronic rhinitis appears to be stable GERD taking her medications well-controlled Nayana Trujillo MD Attn: [address] [place], [address], [facility] 12/03/2023 22:42:02 03/27/2024 text/html 68-year-old hyperlipidemia taking her statin trying to follow a low-fat diet GERD pantoprazole stable type 2 diabetes no polyphagia or polydipsia obesity she has lost some weight we need to continue with caloric restriction history of neck fracture treated a tertiary care center that is doing fine Nayana Trujillo MD Attn: [address] [facility], [place], [address], [facility] 03/27/2024 22:01:49 06/27/2024 text/html Hypertension no headache or dizziness diabetes no polyphasia no polydipsia hyperlipidemia tries to watch her intake of fat chronic rhinitis appears to be stable GERD taking her medications well-controlled. Rhinitis has been doing okay Nayana Trujillo MD Attn: [address] [facility], [place], [address], [facility] 06/30/2024 14:02:54 11/02/2024 text/html hyperlipidemia s he needs blood work but she is taking her medication. Diabetes no polyphagia or polydipsia sugars have been around 140. She has had some nausea with her current illness which has been cough congestion fever chills for the past week week and a half. To go home COVID test that was allegedly negative. Cough has now become productive of some yellow sputum without any chest pain and there has not been any hemoptysis Nayana Trujillo MD Attn: [address] [facility], [place], [address], [place] [facility] 11/03/2024 13:47:04 OBGyn Episode No OBEpisode recorded.
--- OUTSIDE RECORDS SUMMARY | 2024-11-08 10:34 | XMS_ITS | Clinical Summary ---
Author Organization [facility] Address [address] [place] [address] Phone Care Team Providers Care Cognos Architect Name Role Phone Alex Trujillo MD Primary Care Provider [phone] Catrachito Dwyer MD Unavailable [phone] Allergies Active Allergy Reactions Criticality Noted Date [...] hcl, po solid 1000 mg TabletPOBIDCurrent Medication 017 Active montelukast (SINGULAIR) 10 mg tablet 06/06/2017Montelukast sodium, po solid 10 mg TabletPOdailyCurrent Medication 017 Active multivitamin capsule 06/06/2017One daily multivitamin, po solid TabletPOdailyCurrent Medication 017 Active pravastatin (PRAVACHOL) 40 mg tablet 06/06/2017Pravastatin sodium, po solid 10 mg TabletPOQHSCurrent Medication 017 Active ascorbic acid (ascorbic acid) 500 mg [...] spasms 90 tablet 1 023 2024 Disconti bi(Reo rder) Active Problems Problem Noted Date Diagnosed [...] 02/24/2015:Stage IA(cT1a, cN0, cM0, G2, ER: Positive, WA: Positive, HER2: Negative) - Signed by Catrachito Dwyer MD on 03/06/2018 Calculus of kidney 01/12/2016 Angina pectoris 08/22/2013 Former smoker 01/05/2012 Sleep apnea syndrome 02/01/2011 Overview (12/30/2017): Description: Sleep Apnea Atrial fibrillation ([facility]) 02/01/2011 Overview (12/30/2017): Description: Atrial Fibrillation Encounters Date Type Department Care Team Description 10/11/2024 Telephone [facility] Orthopaedic Surgery [address] [place] [address] [place] [address] Dru Mcneal MD Appointment 08/24/2024 Telephone [facility] Orthopaedic Surgery [address] [place] [address] [place] [address] Dru Mcneal MD from Last 3 Months Immunizations Immunization Administration Dates Next Due Flucelvax Influenza Quad 09/07/2018 Influenza, Unspecified 07/06/2017,07/06/2016, Pneumococcal Conjugate, Unspecified 07/06/2015 Surgical History Surgery Date Site/Laterality Comments ROTATOR CUFF REPAIR Rotator Cuff Repair - (Added by TW Conv) WA TOTAL ABDOMINAL HYSTERECT W/WO RMVL TUBE OVARY Hysterectomy - (Added by TW Conv) MASTECTOMY HERNIA REPAIR CHOLECYSTECTOMY BREAST BIOPSY BREAST LUMPECTOMY COLONOSCOPY CARDIAC SURGERY HYSTERECTOMY OOPHORECTOMY POSTERIOR FUSION CERVICAL SPINE 03/15/2023 C3-6 Medical History Medical History Date Comments Personal history of other di seases of the circulatory system History of hypertension - (A dded by TW Conv) Personal history of other en docrine, nutritional and metabolic disease History of type 2 di abetes mellitus - (Added by Droid system master Conv) Personal history of malignan t neoplasm of other parts of uterus History of cancer of uterus - (Added by TW Conv) Personal history of malignan t neoplasm of breast History of malignant neoplas m of breast - (Added by TW Conv) Cervical cancer (CMS/HCC) (HCC) A-fib (CMS/HCC) (HCC) Fusion of spine of cervical region 03/15/2023 C3-6 Type 2 diabetes mellitus wit hout complication (CMS/HCC) (HCC) 09/20/2023 Family History Medical History Relation Name Comments Hypertension Father Family history of hypertension - (Added by TW Conv) Breast cancer Mother Family history of malignant neoplasm of breast - (Added by Droid system master Conv) Breast cancer Mother's Sister Relation Name Status Comments Father Mother (Age 48) 45 when di agnosed Mother's Sister (Age 58) 50 when diagnosed Social History Tobacco Use Types Packs/Day Years Used Date Smoking Tobacco: Former Cigarettes 3 8 1 9 - 1976 Smokeless Tobacco: Never Tobacco Cessation:Counseling [...] on file 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 Gender Identity Not on file Sexual Orientation Not on file Obstetrics History Last Filed Vital Signs Vital Sign Reading [...] 04/24/2024 4:17 PM CDT Plan of Treatment Health Maintenance Due Date Last Done Comments Albumin Creatinine Ratio, Urine 1954 Breast Cancer Screening-Mammogram 1954 Colon Cancer Screening-Colonoscopy 1954 Depression Screening 1954 Hepatitis C Screening 1954 Osteoporosis Screening-Bone Density Scan 1954 Dilated Eye Exam 1954 Foot Exam 1954 Hepatitis B Screening 1972 Zoster Vaccine (1 of 2) 2004 Well Visit 65+ 11/27/2019 Pneumococcal vaccine 65+ (2 of 2 - PPSV23) 04/20/2021 02/23/2021, 07/06/2015 Hemoglobin A1C 09/14/2023 03/15/2023 Lipid Panel 03/15/2024 03/15/2023 Fall Risk Assessment 03/23/2024 03/23/2023 eGFR 04/12/2024 04/12/2023, 03/20, 04/07/2023, Additional history exists Covid-19 Vaccine ( - 2023-2 5 season) 2024 04/08/2022, 04/08/2022, 08/14/2021, Additional history exists Influenza Vaccine (#1) 2024 , 06/21/2020, 06/09/2020, Additional history exists DTaP/Tdap/Td Vaccine (2 - Td or Tdap) 04/28/2027 04/28/2017 Medical Devices Implanted Type Area Heater Planer Operator Device Identifier Shelf Expiration Date Model / Serial / Lot Medtronic Inc Infuse 20ga 2x1in Vial Absorbable Syringe Needle Medium Graft 5.6 [id number] - [id number] Implanted:Qty: 1 on 03/15/2023 by Dru Mcneal MD at [facility] N/A: Spine Cervical Medtronic Inc 05/20/2023 [id number] / / Allosource Crushed Fresh Frozen Cancellous 1-4mm Graft 15ml Bone [id number] - [id number] Implanted:Qty: 1 on 03/15/2023 by Dru Mcneal MD at [facility] N/A: Spine Cervical Allosource 11/19/2027 [id number] / / [id number] Depuy Synthes Spine Screw Spinal Posterior Cervical Polyaxial Solid Symphony 3.5x14mm [id number] - [id number] Implanted:Qty: 8 on 03/15/2023 by Dru Mcneal MD at [facility] N/A: Spine Cervical Depuy Synthes Spine [id number] / / Depuy Synthes Spine Rm Spinal Pre Lordotic Pre Cut Symphony 4.0x55mm Titanium [id number] - [id number] Implanted:Qty: 2 on 03/15/2023 by Dru Mcneal MD at [facility] N/A: Spine Cervical Depuy Synthes Spine [id number] / / Depuy Synthes Spine Substitute Bone Graft Fibergraft Large Bioactive Glass Putty [id number] - [id number] Implanted:Qty: 1 on 03/15/2023 by Dru Mcneal MD at [facility] N/A: Spine Cervical Depuy Synthes Spine 08/09/2025 [id number] / / [id number] Depuy Synthes Spine Screw Spinal Set Posterior Cervical Solid Symphony Titanium [id number] - [id number] Implanted:Qty: 8 on 03/15/2023 by Dru Mcneal MD at [facility] N/A: Spine Cervical Depuy Synthes Spine [id number] / / Procedures Procedure Name Priority Date/Time Associated Diagnosis Comments EGFR Routine Gen Lab 04/12/2023 5:48 AM CDT HEMOGLOBIN A1C STAT 03/15/2023 12:22 AM CDT LIPID PANEL STAT 03/15/2023 12:22 AM CDT from Last 3 Months or Most Recently Relevant to Health Maintenance Results * (ABNORMAL) eGFR (04/12/2023 5:48 AM CDT) eGFR 83(L) 90 - 130 mL/min/1. 73 m2 [facility] Comment: Interpretive Data Reference Interval Normal >/= [...] of Race in Diagnosing Kidney Disease, JASN 2020). The CKD-EPI equation should not be used for patients with unstable renal function and has not been validated in children and those over 70. Current interpretive data was last reviewed 2021. Blood 04/12/2023 5:48 AM CDT 04/12/2023 6:51 AM CDT us Notinfile Unknown LAB BLOOD ORDERABLES Final Res ult [facility] Department [place] [address] * (ABNORMAL) Hemoglobin A1c (03/15/2023 12:22 AM CDT) Hgb A1C 6.2(H) 4.0 - 5.6 % [facility] Estimated Average Glucose 131 mg/dL [facility] Comment: The ADA recommends reporting an estimated [...] Mcneal MD LAB BLOOD ORDERABLES Final [facility] [place] [address] * Lipid panel (03/15/2023 12:22 AM CDT) Cholesterol 191 30 - 199 mg/dL [facility] Comment: Interpretive Data Ages < or = [...] on 2018. Triglycerides 87 <=149 mg/dL [facility] Comment: Interpretive Data Ages < or = [...] revised on 2018. HDL 68 >=40 mg/dL [facility] Comment: Interpretive Data Ages < or = [...] on 2018. LDL, calculated 106 <=129 mg/dL [facility] Comment: Interpretive Data Ages < or = [...] revised on 2018. Non-HDL Cholesterol 123 mg/dL [facility] Comment: Interpretive Data Ages < or = [...] last revised on 2018. Chol/HDL ratio 3 [facility] Blood 03/15/2023 12:2 2 AM CDT 03/15/2023 12:36 AM CDT us Dru Mcneal MD LAB BLOOD ORDERABLES Final Result [facility] [place] [address] from Last 3 Months or Most Recently Relevant to Health Maintenance Insurance MED[employer]ARE [employer]UTIONS [facility] [id number] [employer]ARE [employer] Advance Directives For more information, please contact: [phone] * Full Code (Latest Code Status on File) Date Activated Date Inactivated Comments 03/15/2023 11:25 PM 03/23/2023 8:02 PM Care Teams Cognos Architect Relationship Specialty Start Date End Date Alex Trujillo MD PCP - General Internal Medicine 03/06/18 Catrachito Dwyer MD Medical Oncologist/Line Welder Hematology and Oncology 08/28/18
== END 2024-11-08 10:11 | disposition home or self-care (01) ==
PROVIDERS: PCP Internal Medicine; Visit Provider Internal Medicine
DX: J18.9 Pneumonia, unspecified organism (principal)
CPT/HCPCS: 71046

== ENCOUNTER 2025-03-12 09:08 | Outpatient (CLI) | payer MEDICARE, SELFPAY ==
--- NOTE | ~2025-03-12 | XR_ITS ---
EXAMINATION: XR chest 2V DATE: 03/12/2025 09:37 INDICATION: Persistent cough without fever TECHNIQUE: PA and lateral views of the chest were obtained. COMPARISON: Chest radiograph dated 11/08/2024 FINDINGS: The lungs are clear with no focal airspace opacities, pulmonary edema, pleural effusion or pneumothor ax. The cardiomediastinal silhouette is normal. IMPRESSION: 1. No acute cardiopulmonary disease. Reviewed, dictated and finalized at location A.
== END 2025-03-12 09:09 | disposition home or self-care (01) ==
PROVIDERS: PCP Internal Medicine; Visit Provider Internal Medicine
DX: R05.9 Cough, unspecified (principal)
CPT/HCPCS: 71046